=== PATIENT | male | born 1980 | race Caucasian/White ===

== ENCOUNTER 2020-12-03 22:20 | Emergency (ER) | payer BC ==
[~2020-12-03] VITALS: Ht 180.3 cm; Wt 118.8 kg
== END 2020-12-04 01:58 | disposition home or self-care (01) ==
LOC: ER 22:20
DX: S91.312A Laceration without foreign body, left foot, initial encounter (principal); Z23 Encounter for immunization; W27.0XXA Contact with workbench tool, initial encounter
CPT/HCPCS: 12002; 73630; 90471; 90714; 99283-25